=== PATIENT | female | born 1975 | race Caucasian/White ===

== ENCOUNTER → 2017-08-22 | Outpatient (CLI) | payer BC ==
[~2017-08-22] MED LIST: ACE3 PO; CIP500 PO; DOCU100T19 PO; FAMO20TA28 PO; HYDR-4225 PO; KETC15T TP; LEVO150T7 PO; LEVOTHYROXINE; LOR5 PO; LOR5/325 PO; NAB500 PO; NORG1TAB61 PO; PRED-420 PO; TRAZ-133; VIT D; ZOLP-350 PO
--- NOTE | 2017-08-22 15:24 | RADIOLOGY IMAGING REPORT ---
[place] [facility] [place] JENNIFER RUTLEDGE : [id number] MR: [id number] V: [id number] EXAM DATE: [id number] ORDERING PHYSICIAN: CATHERINE DIAMOND TECHNOLOGIST: Keke Landry PROCEDURE:BILATERAL DIAGNOSTIC DIGITAL MAMMOGRAM WITH CAD ASSISTED INTERPRETATION & 3D TOMOSYNTHESIS COMPARISON:Prior mammograms 02/06/17 & 01/20/17. INDICATIONS:6 MO F/U FINDINGS: A small amount of fibroglandular tissue is seen throughout the breasts. The parenchymal pattern has remained stable allowing for difference in mammographic technique & patient positioning. The focal areas of increased density in the upper outer quadrant of the Right breast in the mid Left breast on the prior Left MLO view and the lateral portion Left breast on the Left CC view all appear similar. Sense there are no mammograms prior to 01/20/17 a 6 month follow-up bilateral mammogram is recommended to document stability unless clinical findings warrant more immediate attention. DIAGNOSTIC CATEGORY 3--PROBABLY BENIGN FINDING. RECOMMENDATIONS: SIX MONTH FOLLOW-UP DIAGNOSTIC MAMMOGRAM: BILATERAL BREASTS. IMPRESSION: BIRADS 3: Probably benign finding A 6 month follow-up bilateral mammogram is recommended as described above. Dictated by: Denise Slaughter M.D. on 08/22/2017 at 11:56 Transcribed by: ALMITA on 08/22/2017 at 12:59 Approved by: Denise Slaughter M.D. on 08/22/2017 at 15:23 [facility]
== END ==
LOC: MAMO 01:13
PROVIDERS: ATTEND Obstetrics & Gynecology
DX: R92.8 Other abnormal and inconclusive findings on diagnostic imaging of breast (principal)
CPT/HCPCS: 77062; 77066

== ENCOUNTER → 2018-03-30 | Outpatient (CLI) | payer BC ==
--- NOTE | 2018-03-31 16:24 | RADIOLOGY IMAGING REPORT ---
FACILITY: [facility] - [place] PATIENT NAME: JENNIFER RUTLEDGE : [id number] MR: [id number] V: [id number] EXAM DATE: ORDERING PHYSICIAN: CATHERINE DIAMOND TECHNOLOGIST: Rebecca York PROCEDURE:BILATERAL DIAGNOSTIC DIGITAL MAMMOGRAM WITH CAD ASSISTED INTERPRETATION & 3D TOMOSYNTHESIS COMPARISON:Prior mammograms 08/22/17, 02/06/17, 01/20/17. INDICATIONS:ABNORMAL MAMMO, SIX MO FOLLOW UP FINDINGS: The breasts are almost entirely fatty with only small scattered islands of fibroglandular tissue. The parenchymal pattern has remained stable allowing for difference in mammographic technique & patient positioning. There is no evidence of malignant appearing mass, malignant appearing calcifications or other secondary sign of malignancy in either breast. DIAGNOSTIC CATEGORY 2--BENIGN FINDING. RECOMMENDATIONS: ROUTINE MAMMOGRAM AND CLINICAL EVALUATION. IMPRESSION: BIRADS 2: Benign finding. Mammograms appear stable. Dictated by: Denise Slaughter M.D. on 03/30/2018 at 17:21 Transcribed by: ALMITA on 03/31/2018 at 8:32 Approved by: Denise Slaughter M.D. on 03/31/2018 at 16:23 [facility]
== END ==
LOC: MAMO 04:44
PROVIDERS: ATTEND Obstetrics & Gynecology
DX: Z12.31 Encounter for screening mammogram for malignant neoplasm of breast (principal)
CPT/HCPCS: 77062; 77066

== ENCOUNTER → 2018-11-03 | Outpatient (REF) | payer BC | LOC: ZZSENDIN 12:00 | PROVIDERS: ATTEND Family Medicine | DX: L28.0 Lichen simplex chronicus (principal) | CPT/HCPCS: 88305 ==